=== PATIENT | female | born 1960 | race African-American/Black ===

== ENCOUNTER 2018-04-19 09:48 | Emergency (ER) | payer OTHER ==
[~2018-04-19] VITALS: Ht 160 cm; Wt 88.0 kg
--- NOTE | 2018-04-19 09:51 | NUR ---
PT TAKEN IN WHEELCHAIR TO ER BED 04
[2018-04-19 10:00] VITALS: BP 124/88
[2018-04-19] MEDS ORDERED: METF500T PO (10:07)
--- NOTE | 2018-04-19 10:08 | NUR ---
BIB SELF. PER PATIENT DIARRHEA AND N/V X6 SINCE THIS MORNING. C/O OF SEVERE ABD PAIN 02/02. SKIN IS PINK/WARM/DRY; AAOX4 WITH EVEN AND STEADY GAIT; LUNGS CLEAR BL; HR EVEN AND REGULAR; PT DENIES ANY FEVER, CP, SOB, OR COUGH AT THIS TIME; PATIENT POSITIONED FOR COMFORT; HOB ELEVATED; BEDRAILS UP X2; BED DOWN. ER MD MADE AWARE OF PT STATUS.
[2018-04-19] MEDS ORDERED: NACL 0.9% 1,000 ML IV ONE (10:18)
[2018-04-19] MEDS ORDERED: NACL 0.9% 1,000 ML IV SCH (10:18)
[2018-04-19] MEDS ORDERED: METOCLOPRAMIDE 10 MG/2 ML INJ VIAL IVP ONE (10:20)
[2018-04-19] MEDS ORDERED: diphenhydrAMINE 50 MG/ML VIAL IVP ONE (10:20)
[2018-04-19] MEDS ORDERED: ONDANSETRON 4 MG/2 ML VIAL IVP ONE (10:20)
[2018-04-19] MEDS ORDERED: MORPHINE SULFATE 4 MG/ML SYR IVP ONE (10:20)
[2018-04-19] MEDS ORDERED: FAMOTIDINE 20 MG/2 ML VIAL IVP ONE (10:20)
[2018-04-19] MEDS ORDERED: KETOROLAC 30 MG/ML VIAL IVP ONE (10:20)
[2018-04-19 10:51] LABS: BASOPHILS % (AUTO) 0.4 % (0.0-2.0); EOSINOPHILS # (AUTO) 0.1 K/uL (0-0.4); EOSINOPHILS % (AUTO) 0.8 % (0.0-4.0); HEMATOCRIT 47.2 % (36-48); HEMOGLOBIN 15.1 g/dL (12.0-16.0); LYMPHOCYTES % (AUTO) 7.5 % (20.5-51.1); MEAN CORPUSCULAR HEMOGLOBIN 28 pg (27-31); MEAN CORPUSCULAR HGB CONC 32 g/dL (33-37); MEAN CORPUSCULAR VOLUME 88.4 fL (80-94); MONOCYTES % (AUTO) 7.7 % (1.7-9.3); NEUTROPHILS # (AUTO) 10.7 K/uL (1.8-7.7); NEUTROPHILS % (AUTO) 83.6 % (42.2-75.2); PLATELET COUNT (AUTO) 279 K/uL (140-450); RED BLOOD CELL COUNT(AUTO) 5.34 MIL/uL (4.20-5.40); RED CELL DISTRIBUTION WIDTH 14.4 % (11.6-13.7); WHITE BLOOD COUNT (AUTO) 12.8 K/uL (4.8-10.8)
[2018-04-19 10:59] LABS: ANION GAP 12.2 (8-16); CARBON DIOXIDE 28.6 mmol/L (21-32); CREATININE 0.7 mg/dL (0.6-1.3); POTASSIUM 3.8 mmol/L (3.5-5.1)
--- NOTE | 2018-04-19 11:00 | NUR ---
PATIENT TO RECIEVE IV AND IV MEDICATIONS ORDERED. MEDICATIONS EXPLAINED AND PATIENT STATED UNDERSTANDING.
[2018-04-19 11:05] LABS: TOTAL BILIRUBIN 0.3 mg/dL (0.0-1.0)
--- NOTE | 2018-04-19 11:56 | NUR ---
PATIENT TAKEN TO CT IN [facility]
--- NOTE | 2018-04-19 12:02 | NUR ---
PATIENT RETURNED FROM CT IN [facility].
[2018-04-19] MEDS ORDERED: LEVOFLOXACIN 500 MG/D5W PREMIX 100 ML IV ONE (12:35)
[2018-04-19] MEDS ORDERED: metroNIDAZOLE 500 MG/NS PREMIX 100 ML IV ONE (12:35)
[2018-04-19] MEDS ORDERED: LEVOFLOXACIN 500 MG TAB PO ONE (13:00)
[2018-04-19 13:16] LABS: APPEARANCE,URINE CLEAR (CLEAR); BILIRUBIN,URINE NEGATIVE (NEGATIVE); BLOOD, URINE NEGATIVE (NEGATIVE); COLOR,URINE YELLOW (YELLOW); LEUKOCYTE ESTERASE ,URINE NEGATIVE (NEGATIVE); NITRITE, URINE NEGATIVE (NEGATIVE); UGLUCOSE NEGATIVE (NEGATIVE)
[2018-04-19 13:30] VITALS: BP 119/82
--- NOTE | 2018-04-19 13:30 | NUR ---
Patient discharged with v/s stable. Written and verbal after care instructions given and explained. Patient alert, oriented and verbalized understanding of instructions. Ambulatory with steady gait. All questions addressed prior to discharge. ID band removed. Patient advised to follow up with PMD. Rx of FLAGYL 500MG AND BENTYL 20MG given. Patient educated on indication of medication including possible reaction and side effects. Opportunity to ask questions provided and answered.
== END 2018-04-19 13:30 | disposition home or self-care (01) ==
LOC: MED 09:48
DX: A09 Infectious gastroenteritis and colitis, unspecified (principal); E11.9 Type 2 diabetes mellitus without complications; Z79.84 Long term (current) use of oral hypoglycemic drugs
CPT/HCPCS: 36415; 74150; 80053; 81003; 82150; 83690; 85025; 96361; 96374; 96375; 99284; J1200; J1885; J2270; J2405; J2765; J3490; J7030; J1956